=== PATIENT | male | born 1945 | race Caucasian/White ===

== ENCOUNTER 2017-04-05 18:01 | Emergency (ER) | payer MEDICARE ==
[2017-04-05 18:09] VITALS: BP 131/92
--- NOTE | 2017-04-05 18:37 | UC ---
Skin Complaint HPI - HPI Summary HPI Summary: Patient presents with complaints of one day onset rash on the left side of his abdomen. He states it is red, raised and itchy. He denies pain, fever or chills. He states he was out mowing the lawn and he devleoped the rash after that. He states he has been applying the medication he uses for his jock itch with some improvement. - History of Current Complaint Hx Obtained From: Patient Onset/Duration: Sudden Onset Skin Exposure Onset/Duration: Days Ago Timing: Constant Onset Severity: Mild Current Severity: Mild Location: Discrete, Other - right side of his abdomen. Character: Pruritus Aggravating: Touch Alleviating: Other - jock itch medication Associated Signs & Symptoms: Positive: Negative <Nisha Parker - Last Filed: 04/05/17 18:27> <Sherry Noguera - Last Filed: 04/05/17 18:52> - History of Current Complaint Chief Complaint: UCRash Time Seen by Provider: 04/05/17 18:02 Stated Complaint: RASH - Allergy/Home Medications Allergies/Adverse Reactions: Allergies Allergy/AdvReac Type Severity Reaction Status Date / Time [place] Allergy Intermediate Runny Nose Verified 08/25/16 12:22 Review of Systems Constitutional: Negative Skin: Rash Eyes: Negative ENT: Negative Respiratory: Negative Cardiovascular: Negative Gastrointestinal: Negative Genitourinary: Negative All Other Systems Reviewed And Are Negative: Yes <Nisha Parker - Last Filed: 04/05/17 18:27> PMH/Surg Hx/FS Hx/Imm Hx Previously Healthy: Yes - Surgical History Surgical History: Yes Surgery Procedure, Year, and Place: aortic stent 2012 - EXCLUDER GORE ( CONDITIONAL 8) SAFE FOR 1.5-3T 720G/CM. appendectomy 1975. TONSILS TEEN - Family History Known Family History: Positive: Hypertension - Social History Occupation: Retired Lives: Alone Alcohol Use: Rare Substance Use Type: None Smoking Status (MU): Never Smoked Tobacco <Nisha Parker - Last Filed: 04/05/17 18:27> Physical Exam Triage Information Reviewed: Yes Appearance: Well-Appearing Vital Signs: Initial Vital Signs Temp 98.0 F 04/05/17 18:03 Pulse 57 04/05/17 18:03 Resp 18 04/05/17 18:03 BP 131/92 04/05/17 18:03 Pulse Ox 100 04/05/17 18:03 Vital Signs Reviewed: Yes Eye Exam: Normal ENT Exam: Normal Neck exam: Normal Respiratory Exam: Normal Cardiovascular Exam: Normal Abdominal Exam: Normal Musculoskeletal Exam: Normal Skin: Positive: rashes <Nisha Parker - Last Filed: 04/05/17 18:27> Vital Signs: Initial Vital Signs Temp 98.0 F 04/05/17 18:03 Pulse 57 04/05/17 18:03 Resp 18 04/05/17 18:03 BP 131/92 04/05/17 18:03 Pulse Ox 100 04/05/17 18:03 <Sherry Noguera - Last Filed: 04/05/17 18:52> Course/Dx - Course Course Of Treatment: Patient presents to the clinic with complaints of itch rash on the right side of his abdomen. He states it has not been painful, and is itchy. He has been applying his jock itch medication with some improvement. His rash appears inflammed, and has erythemic base. There are no vesicle and does not follow a dermatomal pattern. I do not feel this is shingles it appear more like a histamine responce and has responded to medication for jock ithc. I am going to rx hydrocortisone cream, and if for any reason his symtpoms do not improve as antcipacted the patient was instructed to follow up with his PCP, or return for re-evlauation. In the event that the rash does not improve or resolve there would have hto be further testing to rule out allergic, autoimmune , or infectious causes of the rash. - Differential Diagnoses - Skin Complaint Differential Diagnoses: Other - dermatitis - Diagnoses Provider Diagnoses: dermatitis <Nisha Parker - Last Filed: 04/05/17 18:27> Discharge <Nisha Parker - Last Filed: 04/05/17 18:27> <Sherry Noguera - Last Filed: 04/05/17 18:52> - Discharge Plan Condition: Stable Disposition: HOME Prescriptions: Hydrocortisone 1% CREAM* [Hytone Cream 1%*] 1 applic TOPICAL QID #1 tube Patient Education Materials: Acute Rash (ED) Referrals: Leobardo Mancilla MD [Primary Care Provider] - Attestation Statement User Type: Provider - I was available for consult. This patient was seen by the SHANNON. The patient was not presented to, seen by, or examined by me. -Mya <Sherry Noguera - Last Filed: 04/05/17 18:52>
== END 2017-04-05 18:39 | disposition home or self-care (01) ==
LOC: UCEAST 18:01
DX: L30.9 Dermatitis, unspecified (principal)
CPT/HCPCS: 99212; G0463

== ENCOUNTER 2017-05-03 09:22 | Emergency (ER) | payer MEDICARE ==
[2017-05-03 10:22] VITALS: BP 146/86
--- NOTE | 2017-05-09 09:52 | UC ---
Tanvir Haskins Angela, scribed for Kaity Larsen MD on 05/03/17 at 0950 . Upper Extremity HPI - HPI Summary HPI Summary: This pt is a 71 y/o male presenting to [facility] c/o right shoulder pain radiating to his right arm since yesterday at noon. Pt was bending down spreading weed spray with his right hand yesterday. He denies injury perse. But was hurting at the time. Pt reports he has had this pain occasionally in the past but without dx. He denies LE swelling or pain. Pt took two (325mg) aspirin prior to coming in here today. No cough, no sob. No rash. No recent illness / fever / chills. No GI issues. Blood pressure elevated, Mr. Gibbons reports that he has been compliant with BP medications, thinks stress (and not sleeping last night 2/2 pain) may be related to inc bp today. PMHx: aortic aneurysm, HTN - History of Current Complaint Chief Complaint: UCUpperExtremity Stated Complaint: SHOULDER PAIN Time Seen by Provider: 05/03/17 09:40 Hx Obtained From: Patient ?: No Onset/Duration: Lasting Days - 1 Location Of Pain: Radiates To - right arm Associated Signs And Symptoms: Positive: Other - right arm pain. Negative: Bruising - Allergies/Home Medications Allergies/Adverse Reactions: Allergies Allergy/AdvReac Type Severity Reaction Status Date / Time [place] Allergy Intermediate Runny Nose Verified 05/03/17 09:31 PMH/Surg Hx/FS Hx/Imm Hx - Additional Past Medical History Additional PMH: PMHx: aortic aneurysm Previously Healthy: No - hx aortic aneurysm repair. Followed by [facility] Vascular surgery. Other Endocrine History: DENIES: diabetes Cardiovascular History: Hypertension - Surgical History Surgical History: Yes Surgery Procedure, Year, and Place: aortic stent 2012 - EXCLUDER GORE ( CONDITIONAL 8) SAFE FOR 1.5-3T 720G/CM. appendectomy 1975. TONSILS TEEN - Family History Known Family History: Positive: Hypertension - Social History Alcohol Use: Rare Substance Use Type: None Smoking Status (MU): Never Smoked Tobacco Review of Systems Constitutional: Negative Skin: Negative Eyes: Negative ENT: Negative Respiratory: Negative Neurovascular: Negative Musculoskeletal: Other: - right shoulder pain, right arm pain Neurological: Negative Psychological: Negative Is Patient Immunocompromised?: No All Other Systems Reviewed And Are Negative: Yes Physical Exam Triage Information Reviewed: Yes Appearance: Well-Nourished Vital Signs: Initial Vital Signs Temp 97.6 F 05/03/17 09:25 Pulse 54 05/03/17 09:25 Resp 16 05/03/17 09:25 BP 201/104 05/03/17 09:25 Pulse Ox 100 05/03/17 09:25 Vital Signs Reviewed: Yes Eye Exam: Normal ENT Exam: Normal Respiratory Exam: Normal Respiratory: Positive: Chest non-tender, Lungs clear, Normal breath sounds, No respiratory distress, No accessory muscle use Cardiovascular Exam: Normal Cardiovascular: Positive: RRR, No Murmur, Pulses Normal, Brisk Capillary Refill Abdominal Exam: Normal Abdomen Description: Positive: Nontender, No Organomegaly, Soft Bowel Sounds: Positive: Present Musculoskeletal: Positive: Other: - Tender to the upper thoracic just to the right. Tender in the AC area. Pain radiates down to the ulnar area. (ok) thumb- index, thumb-fifth WNL. Distal sensation to light touch x5. Radial/ulnar pulse 2 +. Neurological Exam: Normal Neurological: Positive: Other: - (ok) thumb-index, thumb-fifth WNL. Distal sensation to light touch x5. Radial/ulnar pulse 2+. Psychological Exam: Normal - conversing easily and appropriately Skin Exam: Normal - no visible or reported rash Diagnostics - EKG Cardiac Rate: NL Cardiac Rhythm: Sinus: Normal - 52 bpm. MS 332. QTc 384. Inverted Qs in leads III and aVF. Upper Extremity Course/Dx - Course Course Of Treatment: Patient offered and encouraged EMS. Patient declines. He will drive to the ED, pov. Spoke to Dr. Arredondo, from the ED at 10:25. - Differential Dx/Diagnosis Provider Diagnoses: Right Shoulder pain, etiology unclear. Likely musc-skel, but c/n exclude cardiac etiology. Discharge - Discharge Plan Condition: Stable Disposition: TRANS HIGHER L OF CARE FAC Patient Education Materials: Shoulder Pain (ED) Referrals: Leobardo Mancilla MD [Primary Care Provider] - Additional Instructions: PLEASE GO DIRECTLY TO THE EMERGENCY DEPARTMENT. Don't stop to eat or drink. Stop and call 911 for any worsening problems. The documentation as recorded by the Tanvir pardo Angela accurately reflects the service I personally performed and the decisions made by , Kaity Larsen MD.
== END 2017-05-03 10:25 | disposition short-term general hospital (02) ==
LOC: UCEAST 09:22
DX: M25.511 Pain in right shoulder (principal); R00.1 Bradycardia, unspecified; I10 Essential (primary) hypertension; Z86.79 Personal history of other diseases of the circulatory system; Z95.5 Presence of coronary angioplasty implant and graft
CPT/HCPCS: 93005; 99212; G0463

== ENCOUNTER 2017-05-03 11:09 | Emergency (ER) | payer MEDICARE ==
[2017-05-03] MEDS ORDERED: Acetaminophen TAB* 325 MG PO ONE (11:43)
--- NOTE | 2017-05-03 11:59 | ED ---
Upper Extremity Pain - HPI Summary HPI Summary: 71 yr old male with the complaint of right posterior shoulder pain. Onset of pain was 24 hours ago at 11 am on May 02. The patient complains of pain , 9/10 that radiates from the right dlateral low posterior neck, and posterior right shoudler down the posterior arm and into digits 4/5 of the right hand. The pain is worse if he does not have a pillow under his neck. The pain is worse with head position and with movement to some extent of the right shoulder. He denies SOB, dizziness, chest pain. He denies clavicle pain. He has not fallen or had any injuries. Denies fever and chills. - History of Current Complaint Chief Complaint: EDShoulderClavicDale Stated Complaint: LT SHOULDER PAIN-SENT BY CC Time Seen by Provider: 05/03/17 11:20 - Allergies/Home Medications Allergies/Adverse Reactions: Allergies Allergy/AdvReac Type Severity Reaction Status Date / Time [place] Allergy Intermediate Runny Nose Verified 05/03/17 09:31 PMH/Surg Hx/FS Hx/Imm Hx Endocrine/Hematology History: Denies: Hx Diabetes, Hx Systemic Lupus Erythematosus, Hx Thyroid Disease Cardiovascular History: Reports: Hx Hypertension Denies: Hx Congestive Heart Failure, Hx Pacemaker/ICD Respiratory History: Denies: Hx Asthma, Hx Chronic Obstructive Pulmonary Disease (COPD) GI History: Denies: Hx Ulcer History: Denies: Hx Dialysis, Hx Renal Disease Musculoskeletal History: Denies: Hx Rheumatoid Arthritis Sensory History: Reports: Hx Hearing Aid - please remove prior to MRI Psychiatric History: Denies: Hx Panic Disorder - Cancer History Hx Chemotherapy: No - Surgical History Surgery Procedure, Year, and Place: aortic stent 2012 - EXCLUDER GORE ( CONDITIONAL 8) SAFE FOR 1.5-3T 720G/CM. appendectomy 1975. TONSILS TEEN Infectious Disease History: No Infectious Disease History: Denies: Hx Clostridium Difficile, Hx Hepatitis, Hx Human Immunodeficiency Virus (HIV), Hx of Known/Suspected MRSA, Hx Shingles, Hx Tuberculosis, Hx Known/ Suspected VRE, Hx Known/Suspected VRSA, History Other Infectious Disease, Traveled Outside the [place] in Last 30 Days - Family History Known Family History: Positive: Hypertension - Social History Alcohol Use: Rare Substance Use Type: Reports: None Smoking Status (MU): Former Smoker - quit many years ago Review of Systems Constitutional: Negative Negative: Palpitations, Chest Pain Negative: Shortness Of Breath, Cough Negative: Vomiting, Diarrhea, Nausea Positive: Other - pain in the right shoulder and down the arm worse with position. Negative: Rash All Other Systems Reviewed And Are Negative: Yes Physical Exam Triage Information Reviewed: Yes Vital Signs On Initial Exam: Initial Vitals Temp Pulse Resp BP Pulse Ox 98.2 F 50 17 154/93 98 05/03/17 11:12 05/03/17 11:12 05/03/17 11:12 05/03/17 11:12 05/03/17 11:12 Vital Signs Reviewed: Yes Appearance: Positive: Well-Appearing, No Pain Distress Skin: Positive: Skin Color Reflects Adequate Perfusion Head/Face: Positive: Normal Head/Face Inspection Eyes: Positive: EOMI ENT: Positive: Normal ENT inspection Neck: Positive: Supple, Other: - mild tenderness to the right lower paraspinal cervical muscles. Respiratory/Lung Sounds: Positive: Clear to Auscultation, Breath Sounds Present Cardiovascular: Positive: RRR, Pulses are Symmetrical in both Upper and Lower Extremities. Negative: Murmur Abdomen Description: Positive: Nontender Musculoskeletal: Positive: Strength/ROM Intact, Other - pain in right shoulder made worse with adduction of the arm toward the chest, and also with abduction shoulder against resistance past 90 degrees. Neurological: Positive: Sensory/Motor Intact, Alert, Oriented to Person Place, Time, CN Intact II-III Psychiatric: Positive: Normal - [place] Coma Scale Best Eye Response: 4 - Spontaneous Best Motor Response: 6 - Obeys Commands Best Verbal Response: 5 - Oriented Diagnostics - Vital Signs Vital Signs Temp Pulse Resp BP Pulse Ox 05/03/17 11:12 98.2 F 50 17 154/93 98 - Laboratory Result Diagrams: 05/03/17 11:45 05/03/17 11:45 Lab Statement: Any lab studies that have been ordered have been reviewed, and results considered in the medical decision making process. - Radiology shoulder/chest xray Xray Interpretation: Positive (See Comments) - AC and GC joint arthritis right shoulder Radiology Interpretation Completed By: Radiologist - EKG 05/03/2017 Cardiac Rate: Bradycardia EKG Rhythm: Sinus Bradycardia ST Segment: Normal Ectopy: None EKG Comparison: No Significant Change - compare to one from two hours ago Course/Dx - Course Course Of Treatment: 71 yr old male with 9/10 pain in right arm, and work up not completed. Signed out AMA prior to all the work up being done with risks understood. - Diagnoses Provider Diagnoses: Radicular pain in right arm, Hypertension Discharge - Discharge Plan Condition: Stable Disposition: AGAINST MEDICAL ADVICE Referrals: Leobardo Mancilla MD [Primary Care Provider] -
[2017-05-03 12:07] LABS: Hematocrit 46 % (42-52); Hemoglobin 15.8 g/dl (14.0-18.0); Mean Corpuscular HGB Conc 34 g/dl (31-36); Mean Corpuscular Hemoglobin 32 pg (27-31); Mean Corpuscular Volume 92 fL (80-94); Mean Platelet Volume 8 um3 (7.4-10.4); Red Cell Distribution Width 14 % (10.5-15); White Blood Count 7.3 10^3/ul (3.5-10.8)
[2017-05-03 12:15] LABS: Albumin 4.2 g/dL (3.2-5.2); BUN/Creatinine Ratio 18.2 (8-20); Calcium 9.2 mg/dL (8.6-10.3); EGFR African American 75.6 (>60); EGFR Non-African American 58.8 (>60); Globulin 2.6 g/dL (2-4); Potassium 4.4 mmol/L (3.5-5.0); Total Bilirubin 0.5 mg/dL (0.2-1.0); Total Protein 6.8 g/dL (6.4-8.9)
[2017-05-03 12:16] LABS: Troponin I 0.01 ng/mL (<0.04)
--- NOTE | 2017-05-03 12:31 | RAD ---
HISTORY: Posterior right shoulder pain COMPARISONS: Chest CT dated August 06, 2015 VIEWS: 4: Frontal dual-energy and lateral views of the chest. FINDINGS: CARDIOMEDIASTINAL SILHOUETTE: The aorta is tortuous. The cardiomediastinal silhouette is otherwise unremarkable. SREE: The sree are normal. PLEURA: The costophrenic angles are sharp. No pleural abnormalities are noted. LUNG PARENCHYMA: The lungs are clear. ABDOMEN: The upper abdomen is clear. There is no subphrenic gas. BONES AND SOFT TISSUES: No bone or soft tissue abnormalities are noted. OTHER: None. IMPRESSION: NO ACTIVE CARDIOPULMONARY DISEASE.
--- NOTE | 2017-05-03 12:33 | RAD ---
INDICATION: Right shoulder pain-atraumatic COMPARISON: None TECHNIQUE: Routine frontal and Y views were obtained. FINDINGS: There is mild a.c. and glenohumeral osteoarthritis. There are are no acute bony changes. The shoulder articulates normally. IMPRESSION: MILD A.C. AND GLENOHUMERAL OSTEOARTHRITIS.
[2017-05-03 13:34] VITALS: BP 166/88
== END 2017-05-03 13:58 | disposition left against medical advice (07) ==
LOC: ED 11:09
DX: M79.601 Pain in right arm (principal); Z53.21 Procedure and treatment not carried out due to patient leaving prior to being seen by health care provider; Z87.891 Personal history of nicotine dependence; I10 Essential (primary) hypertension
CPT/HCPCS: 36415; 71020; 80053; 83605; 83735; 84484; 85025; 85610; 87040; 93005; 99283; A9270-GY

== ENCOUNTER 2021-08-11 14:54 | Observation (INO) ==
[2021-08-11] MEDS ORDERED: Lactated Ringers 1000 ml BAG 1,000 ML IV ONE (15:16)
[2021-08-11 15:32] LABS: ABS Eosinophils 0.1 10^3/ul (0-0.6); ABS Lymphocytes 1.7 10^3/ul (1.0-4.8); ABS Monocytes 0.6 10^3/ul (0-0.8); ABS Neutrophils 5.9 10^3/ul (1.5-7.7); Eosinophil % 1.3 %; Hematocrit 49 % (42-52); Lymphocyte % 20.5 %; Mean Corpuscular HGB Conc 35 g/dL (31-36); Mean Corpuscular Hemoglobin 32 pg (27-31); Mean Corpuscular Volume 91 fL (80-94); Mean Platelet Volume 7.7 fL (7.4-10.4); Nucleated Red Blood Cells % 0.1; Platelet Count 208 10^3/uL (150-450); Red Cell Distribution Width 14 % (10-15); White Blood Count 8.3 10^3/uL (3.5-10.8)
[2021-08-11 15:44] LABS: INR 1.07 (0.86-1.15)
[2021-08-11 16:00] LABS: Troponin I 0.04 ng/mL (<0.03)
[2021-08-11] MEDS ORDERED: Metoprolol Tartrate 5 mg VIAL 5 ml VIAL (1 mg/ml) IV ONE (16:06)
[2021-08-11 16:39] LABS: ALT 27 U/L (7-52); AST 21 U/L (13-39); Albumin 4.4 g/dL (3.2-5.2); Albumin/Globulin Ratio 1.8 (1-3); Alkaline Phosphatase 50 U/L (35-149); Anion Gap 12 mmol/L (2-11); Blood Urea Nitrogen 22 mg/dL (6-24); CO2 Carbon Dioxide 26 mmol/L (22-32); Calcium 9.6 mg/dL (8.6-10.3); Chloride 100 mmol/L (101-111); Globulin 2.5 g/dL (2-4); Glucose 153 mg/dL (70-100); Potassium 4.2 mmol/L (3.5-5.0); Sodium 138 mmol/L (135-145); Total Protein 6.9 g/dL (6.4-8.9); eGFR CKD-EPI 49.2 (>60)
[2021-08-11 19:03] LABS: Troponin I 0.42 ng/mL (<0.03)
[2021-08-11] MEDS ORDERED: Enoxaparin 100 MG/ML SYR SUBCUT ONE (19:26)
[2021-08-11 21:34] LABS: Cholesterol 133 mg/dL; HDL Cholesterol 49.6 mg/dL; LDL Cholesterol 64 mg/dL; Triglycerides 99 mg/dL
[2021-08-11 21:45] LABS: TSH Ultra Thyroid Stim Horm 21.35 mcIU/mL (0.34-5.60)
[2021-08-11 22:03] LABS: Troponin I 1.27 ng/mL (<0.03)
[2021-08-12 06:07] LABS: Anion Gap 6 mmol/L (2-11); CO2 Carbon Dioxide 28 mmol/L (22-32); Calcium 8.7 mg/dL (8.6-10.3); Chloride 105 mmol/L (101-111); Potassium 4.3 mmol/L (3.5-5.0); Sodium 139 mmol/L (135-145)
[2021-08-12 06:12] LABS: Blood Urea Nitrogen 23 mg/dL (6-24); Glucose 96 mg/dL (70-100); eGFR CKD-EPI 53.1 (>60)
[2021-08-12 06:13] LABS: Troponin I 1.22 ng/mL (<0.03)
[2021-08-12] MEDS ORDERED: Cholecalciferol (VIT D3) 1,000 unit TAB PO SCH (09:00)
[2021-08-12] MEDS ORDERED: Regadenoson 0.4 MG/5 ML SYRINGE ONE (09:24)
[2021-08-12 14:51] VITALS: BP 156/103
[2021-08-12 15:21] LABS: Free T4 0.83 ng/dL (0.61-1.12)
== END 2021-08-12 13:45 | disposition home or self-care (01) ==
LOC: EDHOLD 14:54 → ED 14:54 → MEDTELE 23:26
PROVIDERS: ADMIT Hospitalist; ATTEND Hospitalist